=== PATIENT | male | born 1965 | race African-American/Black ===

== ENCOUNTER → 2018-04-02 | Outpatient (CLI) | payer OTHER ==
[~2018-04-02] VITALS: Ht 167.6 cm; Wt 85.8 kg
[~2018-04-02] MED LIST: ASPIRIN E.C. 8181 MG PO; FISH OIL 1000MG1 CAP PO; GLUCOPHAGE1000 MG PO; JANUVIA 100MG100 MG PO; LIPITOR 40MG TA40 MG PO; VITAMIN B-1000 MCG/T PO; VITAMIN D32000 I1 PO
[2018-04-02 09:19] VITALS: BP 135/91; PULSE 75
[2018-04-02 10:40] VITALS: BP 148/96; PULSE 83
== END ==
LOC: COL.RAD 08:50
DX: E04.2 Nontoxic multinodular goiter (principal)